=== PATIENT | female | born 1995 | race Caucasian/White ===

== ENCOUNTER → 2020-10-09 09:02 | Outpatient (CLI) | payer MEDICAID ==
[2020-07-15 07:57] VITALS: BMI 38.9
[~2020-10-09 09:02] MED LIST: KEPPRA1000 MG PO; ZOFRAN ODT4 MG/UDTAB PO
== END | disposition home or self-care (01) ==
LOC: D.CN 09:00
PROVIDERS: ATTEND Emergency Medicine
DX: G43.109 Migraine with aura, not intractable, without status migrainosus (principal)